=== PATIENT | male | born 1970 ===

== ENCOUNTER 2021-06-16 08:46 | Outpatient (CLI) | payer MEDICARE | END 2021-06-16 08:47 | disposition home or self-care (01) | LOC: CSHWCC 08:46 | PROVIDERS: ATTEND Nurse Practitioner Family | DX: E11.621 Type 2 diabetes mellitus with foot ulcer (principal); E11.8 Type 2 diabetes mellitus with unspecified complications; L97.512 Non-pressure chronic ulcer of other part of right foot with fat layer exposed; L97.522 Non-pressure chronic ulcer of other part of left foot with fat layer exposed | CPT/HCPCS: 87070; 87077; 87186; 87205; 99203; G0463 ==